=== PATIENT | male | born 1995 | race Caucasian/White ===

== ENCOUNTER 2022-11-27 11:04 | Emergency (ER) | payer OTHER ==
[~2022-11-27] VITALS: Ht 165.1 cm; Wt 70.5 kg
[2022-11-27] MEDS ORDERED: 0.9% SODIUM CHLORIDE 10 ML SYRINGE IVP PRN (11:30)
[2022-11-27] MEDS ORDERED: FAMOTIDINE 10 MG/ML 2 ML VIAL IVP ONE (11:30)
[2022-11-27] MEDS ORDERED: KETOROLAC TROMETHAMINE 30 MG/ML VIAL IVP ONE (11:30)
[2022-11-27] MEDS ORDERED: SODIUM CHLORIDE 0.9% 2,100 ML IV ONE (11:30)
[2022-11-27] MEDS ORDERED: MORPHINE SULFATE 2 MG/ML SYRINGE IVP ONE (11:30)
[2022-11-27] MEDS ORDERED: ACETAMINOPHEN 1000 MG/ISO-OSM 100 ML IV ONE (11:30)
[2022-11-27] MEDS ORDERED: ONDANSETRON HCL 4 MG/2 ML VIAL IVP ONE (11:30)
[2022-11-27 12:02] LABS: BASOPHILS % (AUTO) 0.4 % (0.0-2.0); EOSINOPHILS % (AUTO) 0.1 % (1.0-6.0); HEMATOCRIT 40.1 % (41-53); HEMOGLOBIN 14.2 g/dL (13.5-17.5); LYMPHOCYTES # (AUTO) 0.6 K/uL (1.0-4.8); LYMPHOCYTES % (AUTO) 5.2 % (22.0-44.0); MEAN CORPUSCULAR HEMOGLOBIN 31.8 pg (26.0-34.0); MEAN CORPUSCULAR HGB CONC 35.3 G/dL (31.0-37.0); MEAN CORPUSCULAR VOLUME 90 fL (80-100); MONOCYTES # (AUTO) 0.6 K/uL (0.1-1.0); MONOCYTES % (AUTO) 5.6 % (2.0-9.0); NEUTROPHILS # (AUTO) 10.2 K/uL (1.8-7.7); PLATELET COUNT (AUTO) 245 K/uL (150-450); RED BLOOD CELL COUNT(AUTO) 4.45 MIL/uL (4.50-5.90); RED CELL DISTRIBUTION WIDTH 12.6 % (11.5-14.5)
[2022-11-27 12:07] LABS: PROTHROMBIN TIME 10.8 SEC (9.4-11.6)
[2022-11-27] MEDS ORDERED: SODIUM CHLORIDE 0.9% 100 ML ONE (12:07)
[2022-11-27] MEDS ORDERED: IOHEXOL 350 MG/ML 100 ML VIAL ONE (12:07)
[2022-11-27 12:08] LABS: ANION GAP 11 mmol/L (8-16); CALCIUM, TOTAL 9.1 mg/dL (8.8-10.5); CARBON DIOXIDE 27 mmol/L (22-29); CHLORIDE 98 mmol/L (98-107); CREATININE 0.94 mg/dL (0.60-1.30); GLOMERULAR FILTR. RATE CALC > 60 mL/min (>60); GLUCOSE,RANDOM 94 mg/dL (70-110); POTASSIUM 3.5 mmol/L (3.5-5.1); SODIUM SERUM 136 mmol/L (136-145); UREA NITROGEN, BLOOD 10 mg/dL (7-18)
[2022-11-27 12:08] LABS: COVID AG,FIA SOURCE NASOPHARYNGEAL
[2022-11-27 12:09] LABS: NEUTROPHILS % (AUTO) 88.7 % (40.0-70.0)
[2022-11-27 12:14] LABS: ALANINE AMINOTRANSFERASE 38 U/L (12-78); ALBUMIN 3.8 g/dL (3.4-5.0); ALKALINE PHOSPHATASE 69 U/L (46-116); ASPARTATE AMINOTRANSFERASE 22 U/L (15-37); BILIRUBIN,TOTAL 1.6 mg/dL (0.1-1.0); CREATINE KINASE, TOTAL ONLY 43 U/L (39-308); LIPASE 61 U/L (73-393); PHOSPHORUS 2.6 mg/dL (2.5-4.9); TOTAL PROTEIN, SERUM 7.7 g/dL (6.4-8.2)
[2022-11-27 12:28] LABS: LACTIC ACID 2.1 mmol/L (0.4-2.0)
[2022-11-27 12:29] LABS: B-TYPE NATRIURETIC PEPTIDE 35 pg/mL (0-100)
[2022-11-27 12:30] LABS: INFLUENZA TYPE A NEGATIVE FOR TYPE A (NEGATIVE); INFLUENZA TYPE B NEGATIVE FOR TYPE B (NEGATIVE)
[2022-11-27] MEDS ORDERED: MAGNESIUM SULFATE 1 GM in DEXTROSE 5%-WATER 50 ML IV ONE (12:30)
[2022-11-27 13:41] LABS: APPEARANCE,URINE CLEAR (CLEAR); BILIRUBIN,URINE NEGATIVE (NEGATIVE); GLUCOSE, URINE (UA) NEGATIVE (NEGATIVE); KETONES,URINE =>150 mg/dL (NEGATIVE); LEUKOCYTE ESTERASE ,URINE NEGATIVE (NEGATIVE); NITRATE,URINE NEGATIVE (NEGATIVE); OCCULT BLOOD,URINE NEGATIVE (NEGATIVE); PROTEIN,URINE NEGATIVE (NEGATIVE); SPECIFIC GRAVITIY, URINE 1.013 (1.003-1.030); UROBILINOGEN,URINE <=1.0 mg/dL (<=1.0)
[2022-11-27 14:38] LABS: AMPHET/METH SCREEN,URINE NEGATIVE (NEGATIVE); BARBITURATE SCREEN, URINE NEGATIVE (NEGATIVE); BENZODIAZEPINES SCREEN,URINE NEGATIVE (NEGATIVE); CANNABINOID SCREEN,URINE NEGATIVE (NEGATIVE); COCAINE SCREEN,URINE NEGATIVE (NEGATIVE); METHADONE SCREEN, URINE NEGATIVE (NEGATIVE); OPIATE SCREEN,URINE POSITIVE (NEGATIVE); PHENCYCLIDINE SCREEN,URINE NEGATIVE (NEGATIVE)
[2022-11-27 18:32] VITALS: BP 118/64
== END 2022-11-27 18:37 | disposition home or self-care (01) ==
LOC: EMS 11:07
DX: N50.812 Left testicular pain (principal); R10.30 Lower abdominal pain, unspecified; R50.9 Fever, unspecified; R19.7 Diarrhea, unspecified; E87.20 Acidosis, unspecified; F41.9 Anxiety disorder, unspecified; F32.A Depression, unspecified; Z20.822 Contact with and (suspected) exposure to COVID-19
CPT/HCPCS: 99285; 71275; 74181; 96365; 96375; 76705; 71045; 96367; 87426; 80053; 81003; 82550; 83605; 83690; 83735; 83880; 84100; 84484; 85025; 85379; 85610; 87040; 87804; 36415; 74177; 76870; 93005; 84145; 80307 ×2; G0480; J3490; J1885; J2270; J2405; Q9967; J7060; J3475; J7030; J7050; J0131

== ENCOUNTER 2024-12-06 17:37 | Emergency (ER) | payer OTHER ==
[~2024-12-06] VITALS: Ht 165.1 cm; Wt 68.1 kg
[2024-12-06 17:45] VITALS: BP 127/78; PULSE 74; RESP 17; TEMP 97.1; O2SAT 96
[2024-12-06 20:53] LABS: BASOPHILS % (AUTO) 0.7 % (0.0-2.0); EOSINOPHILS % (AUTO) 2.6 % (1.0-6.0); HEMATOCRIT 44.1 % (41-53); HEMOGLOBIN 14.8 g/dL (13.5-17.5); LYMPHOCYTES # (AUTO) 2.2 K/uL (1.0-4.8); MEAN CORPUSCULAR HEMOGLOBIN 31.3 pg (26.0-34.0); MEAN CORPUSCULAR HGB CONC 33.7 G/dL (31.0-37.0); MEAN CORPUSCULAR VOLUME 93 fL (80-100); MONOCYTES # (AUTO) 0.4 K/uL (0.1-1.0); MONOCYTES % (AUTO) 5.8 % (2.0-9.0); NEUTROPHILS # (AUTO) 3.6 K/uL (1.8-7.7); NEUTROPHILS % (AUTO) 55.9 % (40.0-70.0); PLATELET COUNT (AUTO) 261 K/uL (150-450); RED BLOOD CELL COUNT(AUTO) 4.74 MIL/uL (4.50-5.90); RED CELL DISTRIBUTION WIDTH 13.2 % (11.5-14.5); WHITE BLOOD COUNT (AUTO) 6.4 K/uL (4.5-11.0)
[2024-12-06 21:05] LABS: ANION GAP 7 mmol/L (8-16); CALCIUM, TOTAL 8.7 mg/dL (8.8-10.5); CARBON DIOXIDE 31 mmol/L (22-29); CHLORIDE 104 mmol/L (98-107); CREATININE 0.74 mg/dL (0.60-1.30); GLOMERULAR FILTR. RATE CALC > 60 mL/min (>60); GLUCOSE,RANDOM 94 mg/dL (70-110); SODIUM SERUM 142 mmol/L (136-145); UREA NITROGEN, BLOOD 17 mg/dL (7-18)
[2024-12-06] MEDS: IBUPROFEN 400 MG TABLET PO ONE (22:46)
[2024-12-06] MEDS: ACETAMINOPHEN 500 MG TABLET PO ONE (22:46)
[2024-12-06] MEDS: DIAZEPAM 5 MG TABLET PO ONE (22:47)
[2024-12-06] MEDS: METOCLOPRAMIDE HCL 10 MG TABLET PO ONE (22:47)
[2024-12-06] MEDS ORDERED: METH-812 PO (23:30)
== END 2024-12-06 23:42 | disposition home or self-care (01) ==
LOC: EMS 17:37
DX: M62.838 Other muscle spasm (principal); G44.209 Tension-type headache, unspecified, not intractable; F41.9 Anxiety disorder, unspecified
CPT/HCPCS: 80048; 85025; 99284

== ENCOUNTER 2025-04-05 14:09 | Emergency (ER) | payer OTHER ==
[~2025-04-05] VITALS: Ht 165.1 cm; Wt 68.2 kg
[~2025-04-05 14:09] MED LIST: METH-812 PO
[2025-04-05 14:13] VITALS: TEMP 98.1
[2025-04-05] MEDS ORDERED: BUPR-344 PO (14:19)
[2025-04-05 14:47] LABS: PLATELET COUNT (AUTO) 269 K/uL (150-450); RED BLOOD CELL COUNT(AUTO) 4.93 MIL/uL (4.50-5.90); RED CELL DISTRIBUTION WIDTH 13.0 % (11.5-14.5); WHITE BLOOD COUNT (AUTO) 5.6 K/uL (4.5-11.0)
[2025-04-05 14:48] LABS: APPEARANCE,URINE CLEAR (CLEAR); GLUCOSE, URINE (UA) NEGATIVE (NEGATIVE); LEUKOCYTE ESTERASE ,URINE NEGATIVE (NEGATIVE); NITRATE,URINE NEGATIVE (NEGATIVE); OCCULT BLOOD,URINE NEGATIVE (NEGATIVE); SPECIFIC GRAVITIY, URINE 1.023 (1.003-1.030)
[2025-04-05 14:50] LABS: CALCIUM, TOTAL 8.8 mg/dL (8.8-10.5); CREATININE 0.95 mg/dL (0.60-1.30); GLOMERULAR FILTR. RATE CALC > 60 mL/min (>60); GLUCOSE,RANDOM 104 mg/dL (70-110); SODIUM SERUM 142 mmol/L (136-145); UREA NITROGEN, BLOOD 16 mg/dL (7-18)
[2025-04-05 14:56] LABS: ASPARTATE AMINOTRANSFERASE 15.0 U/L (15-37); TOTAL PROTEIN, SERUM 7.6 g/dL (6.4-8.2)
[2025-04-05 15:13] LABS: COVID AG,FIA SOURCE NASAL SWAB
[2025-04-05] MEDS ORDERED: 0.9% SODIUM CHLORIDE 10 ML SYRINGE IVP ONE (15:14)
[2025-04-05] MEDS ORDERED: SODIUM CHLORIDE 0.9% 100 ML ONE (15:14)
[2025-04-05] MEDS ORDERED: IOHEXOL 350 MG/ML 100 ML VIAL ONE (15:14)
[2025-04-05 15:44] LABS: RAPID GROUP A STREP NEGATIVE (NEGATIVE)
[2025-04-05 16:03] LABS: SARS-COV2 (COVID) ANTIGEN,FIA Negative (Negative)
[2025-04-05 16:07] LABS: INFLUENZA TYPE A NEGATIVE FOR TYPE A (NEGATIVE); INFLUENZA TYPE B NEGATIVE FOR TYPE B (NEGATIVE)
[2025-04-05] MEDS: SODIUM CHLORIDE 0.9% 1,000 ML IV ONE (16:15)
[2025-04-05] MEDS: ACETAMINOPHEN 500 MG TABLET PO ONE (16:15)
[2025-04-05] MEDS: FAMOTIDINE 20 MG/2 ML VIAL IVP ONE (16:15)
[2025-04-05] MEDS: MAG HYDROX/ALUMINUM HYD/SIMETH 30 ML SUSPENSION UDCUP PO ONE (16:15)
[2025-04-05] MEDS: ONDANSETRON HCL 4 MG/2 ML VIAL IVP ONE (16:15)
[2025-04-05 18:30] VITALS: BP 121/71; PULSE 63; RESP 16; O2SAT 99
[2025-04-05] MEDS ORDERED: ONDA-104 PO (19:14)
[2025-04-05] MEDS ORDERED: OMEP-148 PO (19:14)
== END 2025-04-05 20:01 | disposition home or self-care (01) ==
LOC: EMS 14:10
DX: K29.70 Gastritis, unspecified, without bleeding (principal); R10.33 Periumbilical pain; F41.9 Anxiety disorder, unspecified; F32.A Depression, unspecified; Z20.822 Contact with and (suspected) exposure to COVID-19; Z79.899 Other long term (current) drug therapy
CPT/HCPCS: 99285; 71260; 96374; 76705; 96361; 96375; 87426; 80048; 80076; 81003; 83690; 85025; 87430; 87804; 36415; 74160; 93005; 72193; Q9967; J3490; J2405; J7030; J7050